=== PATIENT | male | born 1985 | race Two or more races ===

== ENCOUNTER 2021-06-30 08:44 | Emergency (ER) | payer SELFPAY ==
[~2021-06-30] VITALS: Ht 180.3 cm; Wt 77.1 kg
[2021-06-30 09:36] VITALS: BP 133/78
== END 2021-06-30 09:44 | disposition home or self-care (01) ==
LOC: ER 08:44
DX: H10.31 Unspecified acute conjunctivitis, right eye (principal); H60.03 Abscess of external ear, bilateral